=== PATIENT | male | born 1985 | race Caucasian/White ===

== ENCOUNTER 2025-09-07 20:09 | Emergency (ER) | payer OTHER, SELFPAY ==
[2025-09-07 20:12] VITALS: BP 150/93; PULSE 114; RESP 18; TEMP 36.6; O2SAT 99
--- NOTE | 2025-09-07 20:34 | ED.DENTAL ---
HPI - Dental/Oral General Chief complaint: Dental/Oral Stated complaint: dental Time Seen by Provider: 09/07/25 20:20 History of Present Illness HPI Narrative: 39-year-old male presenting with periapical/dental abscess in the right upper jaw. He noticed it several days ago and went to his primary care provider as he was having swelling in his cheek as well as pain. He got prescribed Augmentin for this and yesterday noted that he had some fluid leak from the abscess site and his swelling resolved but he still having some minor pain that he is taking ibuprofen and saltwater rinses 4. He came to the ER for evaluation as he was worried about the abscess. Denies any fever, chills, throat closing sensation, difficulty breathing or swallowing. States that he was able to get some of the abscess fluid out with a cotton-tipped swab and just feels the abscess pocket remaining. Previous dental work in the area previously. Has not contacted his dentist. No systemic symptoms or any other complaints at this time. Teeth map:  1. Periapical abscess already draining and open, mildly tender to palpation but no fluctuance. Exam Narrative: GENERAL: [Well-appearing, well-nourished, and in no acute distress.] HEAD: [Normocephalic, atraumatic.] EYES: [PERRLA and EOMI.] ENT: Nares clear, no rhinorrhea or epistaxis. Mucous membranes moist. Periapical abscess already draining noted in the right upper jaw around tooth 2. With some tenderness to palpation but no fluctuance. No gingival irritation or infection. No bleeding. No further purulent material noted. NECK: Supple. CHEST: [Clear to auscultation. No respiratory distress.] HEART: [Regular rate and rhythm]. No murmur heard. [Normal peripheral pulses.] ABDOMEN: [Soft, nondistended], [nontender], [No rigidity or guarding] EXTREMITIES: Normal range of motion. [No edema.] SKIN: Warm, dry, no rash. NEURO: [No focal deficits]. Alert and oriented [x3.] PSYCH: [Normal mood and affect.] Course Vital Signs Vital signs: Vital Signs Temperature 36.6 C 09/07/25 20:12 Pulse Rate 114 H 09/07/25 20:12 Respiratory Rate 18 09/07/25 20:12 Blood Pressure 150/93 H 09/07/25 20:12 Pulse Oximetry 99 09/07/25 20:12 Oxygen Delivery Room Air 09/07/25 20:12 Temperature 36.6 C 09/07/25 20:12 Pulse Rate 114 H 09/07/25 20:12 Respiratory Rate 18 09/07/25 20:12 Blood Pressure 150/93 H 09/07/25 20:12 Pulse Oximetry 99 09/07/25 20:12 Oxygen Delivery Room Air 09/07/25 20:12 MDM - Dental/Oral MDM Narrative Medical decision making narrative: 39-year-old male presenting with periapical/dental abscess in the right upper jaw. He noticed it several days ago and went to his primary care provider as he was having swelling in his cheek as well as pain. He got prescribed Augmentin for this and yesterday noted that he had some fluid leak from the abscess site and his swelling resolved but he still having some minor pain that he is taking ibuprofen and saltwater rinses 4. He came to the ER for evaluation as he was worried about the abscess. Denies any fever, chills, throat closing sensation, difficulty breathing or swallowing. States that he was able to get some of the abscess fluid out with a cotton-tipped swab and just feels the abscess pocket remaining. Previous dental work in the area previously. Has not contacted his dentist. No systemic symptoms or any other complaints at this time. Periapical abscess already drained noted in the right upper jaw around tooth 2. With some tenderness to palpation but no fluctuance. No gingival irritation or infection. No bleeding. No further purulent material noted. Patient is afebrile and otherwise well-appearing. Mildly tachycardic likely secondary to pain. Declined any further analgesia. No chronic medical conditions and already compliant with his Augmentin and pain control. Declined any further analgesia and just wanted reassurance about his abscess. Has a dentist he can follow up with and we discussed strict return precautions and further treatment regimen including completion of his antibiotics, pain control regimens and saltwater rinses. Patient comfortable with the plan and safe for discharge home at this time. Medical Records Attestation: I reviewed the patient's medical records. Discharge Plan Discharge Clinical Impression: Dental abscess Patient Disposition: Home Condition: Stable Instructions: Antibiotic Form, Dental Abscess (ED) Additional Instructions: You have a dental/periapical abscess in the right upper jaw that is already open and draining purulent material consistent with abscess. The antibiotics that you are prescribed is broad spectrum and appropriate for this, but you need to complete the entire course. 800 mg ibuprofen every 8 hours can also be taken with 1000 mg of Tylenol every 8 hours for fever and pain control. The abscess is open and draining and does not need any further management at this time just need antibiotics and pain control as well as salt water rinses. Contact your dentist for close follow-up for definitive management if this is a recurrent issue or not getting better. Return with any emergent concerns such as difficulty swallowing, throat closing sensations, persistent neck pain, difficulty breathing or any other emergent issues. Patient Language: [place] Follow-up/Referrals: UNKNOWN,DOCTOR [Non-Staff] Time of Disposition: 20:34
== END 2025-09-07 20:55 | disposition home or self-care (01) ==
LOC: ANHED 20:35
PROVIDERS: Emergency Provider Student in an Organized Health Care Education/Training Program
DX: K04.7 Periapical abscess without sinus (principal)
CPT/HCPCS: 99281